=== PATIENT | female | born 1980 | race Caucasian/White ===

== ENCOUNTER 2024-11-10 11:27 | Emergency (ER) | payer BC, SELFPAY ==
[2024-11-10 11:36] VITALS: BP 117/76; PULSE 77; RESP 16; TEMP 36.8; O2SAT 99; BMI 29.2
--- NOTE | 2024-11-10 11:39 | EKG_ITS ---
[facility] Test Date: 2024-11-10 Pat Name: CLARI MCQUEEN Department: Room: - Gender: Female Offal Baler: : 1980 Requested By: ED Temporary Provider Order Number: [id number] Reading MD: ED Temporary Provider Measurements Intervals [place] Rate: 72 P: 39 MD: 139 QRS: 12 QRSD: 90 T: 26 QT: 377 QTc: 414 Interpretive Statements SINUS RHYTHM Compared to ECG 01/30/2024 22:39:21 No significant changes /store/S0/[id number].pdf
--- NOTE | 2024-11-10 11:48 | XR_ITS ---
Examination: PA lateral chest 2 views TECHNIQUE: Upright PA lateral chest 2 views Examination time: November 10, 2024 1310 hours INDICATIONS: Chest pain today. FINDINGS: Normal heart size. Lungs are clear. The osseous structures are intact IMPRESSION: No active disease
--- NOTE | 2024-11-10 11:49 | PD.EDRME ---
Rapid Medical Screening Exam E Arrival date/time: 11/10/24 11:27 This is a 44-year-old female that comes to the emergency room with complaints of near syncope episode. Patient states that she started to have a pain to the right lateral chest and she reports shortly after that she started feeling dizzy and felt like her vision got blurry. Patient states that her daughter helped her to the floor she kind of slid down. Patient denies any injuries. Patient states she did not actually pass out and was awake the entire time. Patient denies chest pain shortness of breath. Patient reports episode of back pain that happened couple days ago after she urinated. Patient states that the only time she has had that pain. Patient denies alcohol drug use. I have greeted and performed a focused initial assessment of this patient. Initial appropriate labs ordered at this time. A comprehensive ED assessment and evaluation of the patient and analysis of all test and completion of medical decision making process will be conducted by additional ED provider. Chief Complaint: Chest Pain Time Seen by Provider: 11/10/24 11:32 Vital signs: Vital Signs Temperature 98.2 F 11/10/24 11:36 Pulse Rate 77 11/10/24 11:36 Respiratory Rate 16 11/10/24 11:36 Blood Pressure 117/76 11/10/24 11:36 Pulse Oximetry (%) 99 11/10/24 11:36 Oxygen Delivery Method Room Air 11/10/24 11:36
[2024-11-10 12:15] LABS: Collection Type, Urine Voided
[2024-11-10 12:33] LABS: Basophils # (Auto) 0.1 Thou/mm3 (0.0-0.2); Basophils % (Auto) 1 % (0-2.5); Eosinophils # (Auto) 0.2 Thou/mm3 (0.0-0.5); Eosinophils % (Auto) 2 % (0-10); Hematocrit 36.3 % (36.0-46.0); Hemoglobin 12.7 g/dL (12.0-16.0); Immature Granulocytes % (Auto) 0 % (0-0); Immature Granulocytes Auto 0.02 Thou/mm3 (0.00-0.00); Lymphocytes # (Auto) 2.1 Thou/mm3 (1.0-4.8); Lymphocytes % (Auto) 22 % (10-50); Mean Corpuscular Hemoglobin 30.8 pg (25.0-35.0); Mean Corpuscular Volume 88 fL (80-100); Monocytes # (Auto) 0.6 Thou/mm3 (0.0-0.8); Monocytes % (Auto) 6 % (0-12); Neutrophils # (Auto) 6.6 Thou/mm3 (1.8-7.7); Neutrophils % (Auto) 69 % (37-80); Nucleated Red Blood Cell % 0 /100 WBC (0); Platelet Count 259 Thou/mm3 (140-440); RDW Standard Deviation 40.5 fL (36.4-46.3); Red Blood Count 4.13 Miln/mm3 (4.00-5.20); White Blood Count 9.5 Thou/mm3 (3.6-11.0)
[2024-11-10 12:44] LABS: Bilirubin,Urine Negative (Negative); Blood,Urine 1+ (Negative); Clarity,Urine Clear (Clear/Hazy); Color,Urine Colorless (Lt Yel-Yel); Culture Indicated,Urine Not Indicated; Glucose, Urine Negative (Negative); Ketones,Urine Negative (Negative); Leukocyte Esterase,Urine Negative (Negative); Nitrite,Urine Negative (Negative); Protein,Urine Negative (Neg - Trace); RBC,Urine 1 /hpf (0-3); Specific Gravity,Urine 1.006 (1.001-1.035); Squamous Epithelial Cell,Urine 3 /hpf (0-5); Urobilinogen,Urine Negative mg/dL (0.0-1.0); WBC,Urine 1 /hpf (0-5)
[2024-11-10 12:54] LABS: Amphetamine/Methamp Scrn,U Negative (Negative); Barbiturate Screen,Urine Negative (Negative); Benzodiazepines Screen,Urine Negative (Negative); Benzoylecgonine Screen, Ur Negative (Negative); Fentanyl Screen,Urine Negative (Negative); Opiate Screen,Urine Negative (Negative); THC Screen,Urine Negative (Negative)
[2024-11-10 12:59] LABS: Alanine Aminotransferase 16 U/L (10-49); Albumin, Serum 4.7 gm/dL (3.5-5.0); Alkaline Phosphatase 50 U/L (46-116); Anion Gap 8 (7-16); Aspartate Amino Transferase 17 U/L (0-34); BUN/Creatinine Ratio 14 Ratio (12-20); Blood Urea Nitrogen 10 mg/dL (9-23); Calcium 9.4 mg/dL (8.3-10.6); Calcium (Corrected) 9.4 mg/dL (8.5-10.1); Carbon Dioxide 25.3 mMol/L (20.0-31.0); Chloride 108 mMol/L (98-107); Creatinine (Component) 0.7 mg/dL (0.6-1.3); Estimated Creatinine Clearance 90.1 mL/min (>60); Globulin 2.3 gm/dL (2.3-3.5); Glucose 92 mg/dL (74-106); Osmolality,Calculated 280 (275-295); Potassium 3.9 mMol/L (3.4-5.1); Sodium 141 mMol/L (136-145); Troponin I < 0.002 ng/mL (0.0-0.045); eGFR > 60 See Note
[2024-11-10 13:22] LABS: HCG Qualitative,Urine Negative
--- NOTE | 2024-11-10 13:36 | EDNOTE_ITS ---
<Statement entered by Gloria Childress MD - 11/10/24 14:43> As co-signing physician, I was present and available for consult prn. I concur with the plan and care as documented by the midlevel provider. ED General RME/HPI General Chief complaint: Chest Pain Stated complaint: SHARP,SHOOTING PAIN R)SIDE/CHEST,SOB,[id number] AGO Time Seen by Provider: 11/10/24 11:32 Arrival date/time: 11/10/24 11:27 CC: Near syncope episode happened at home, she had blurry vision felt lightheaded was helped to the floor. Patient also had a second episode in the waiting room. Currently patient is awake alert oriented with no symptoms whatsoever states she feels mildly weak. Denies headache shortness of breath difficulty breathing nausea vomiting or diarrhea RME / HPI RME / HPI narrative: 11/10/24 11:27 This is a 44-year-old female that comes to the emergency room with complaints of near syncope episode. Patient states that she started to have a pain to the right lateral chest and she reports shortly after that she started feeling dizzy and felt like her vision got blurry. Patient states that her daughter helped her to the floor she kind of slid down. Patient denies any injuries. Patient states she did not actually pass out and was awake the entire time. Patient denies chest pain shortness of breath. Patient reports episode of back pain that happened couple days ago after she urinated. Patient states that the only time she has had that pain. Patient denies alcohol drug use. I have greeted and performed a focused initial assessment of this patient. Initial appropriate labs ordered at this time. A comprehensive ED assessment and evaluation of the patient and analysis of all test and completion of medical decision making process will be conducted by additional ED provider. Related Data Previous Rx's ?Medication ?Instructions ?Recorded docusate sodium 100 mg capsule 100 mg PO BID #60 caps 03/08/18 (Colace) hydromorphone 2 mg tablet 2 mg PO Q6H PRN pain #30 tab s 03/08/18 (Dilaudid) Allergies Allergy/AdvReac Type Severity Reaction Status Date / Time acetaminophen (From Vicodin) Allergy Mild Nausea Verified 11/10/24 11:31 hydrocodone (From Vicodin) Allergy Mild Nausea Verified 11/10/24 11:31 Past Medical History Past Medical History NEUROLOGIC: Positive Neurological Disorders and Migraine; Negative Seizures CARDIAC: Negative Cardiac Disorders or Congestive Heart Failure RESPIRATORY: Positive Asthma (SEASONAL HAS INHALER); Negative Chronic Obstructive Pulmonary Disease (COPD) GASTROINTESTINAL: Positive Gastrointestinal Disorders and Gall Bladder Disease (FOR THIS PROC) GENITOURINARY: Negative Genitourinary Disorders or Renal Disease REPRODUCTIVE: Positive Previous Pregnancies (X3) MUSCULOSKELETAL: Positive Musculoskeletal Disorders, Arthritis and Rheumatoid Arthritis ENDOCRINE: Negative Endocrine Disorders, Diabetes Mellitus Type 1 or Diabetes Mellitus Type 2 HEMATOLOGIC: Negative Blood Disorders OTHER HISTORY: Positive Anesthesia Reactions (nausea) and Chicken Pox; Negative Autoimmune Disease or Blood Transfusions Family History FAMILY HISTORY: Positive Family Respiratory Disorders (FATHER), Family Cardiac Disorders (MOTHER (HTN)) and Family Surgery (SISTER) Surgical History SURGICAL: Positive Tubal Ligation Social History SMOKING STATUS: Never smoker ED Exam Narrative Physical exam: [General: Not in any acute distress Head normocephalic HEENT: Within acceptable limits Neck is supple nontender Chest equal chest rise nontender to palpation Respiratory: Clear to auscultation no wheezes crackles or rubs CV: Rate rhythm is regular no murmurs rubs or clicks Abdomen is soft nontender no masses positive bowel sounds all 4 quadrants Back: No CVA tenderness no spinous process tenderness from cervical spine thoracic and lumbar spine Skin: Intact no petechiae rash induration ulceration or crepitus Extremities: Moving all extremity against resistance cap refill less than 2 seconds neurosensory intact Neuro: Awake alert oriented x3 Glascow coma 15 no focal deficits] Course Course Course Narrative: After observing the patient for approximately 35 minutes there is no return of symptoms, this time comfortable discharging the patient home patient is also comfortable with this and would be willing to follow-up with her primary care provider. Quality Measures none Orders Category Date Time Status EKG (ED ONLY) *Do not use* NOW Care 11/10/24 11:39 Completed EKG (ED Only) Stat Exams 11/10/24 11:39 Draft XR chest 2V Stat Exams 11/10/24 11:48 Completed CBC Stat Lab 11/10/24 12:20 Completed Comprehensive Metabolic Panel Stat Lab 11/10/24 12:20 Completed Drug Screen,Urine Stat Lab 11/10/24 11:59 Completed HCG Qualitative,Urine Stat Lab 11/10/24 11:59 Completed Troponin I Stat Lab 11/10/24 12:20 Completed Urinalysis, C/S if Indicated Stat Lab 11/10/24 11:59 Completed Vital Signs Vital signs: Vital Signs Temperature 98.2 F 11/10/24 11:36 Pulse Rate 77 11/10/24 11:36 Respiratory Rate 16 11/10/24 11:36 Blood Pressure 117/76 11/10/24 11:36 Pulse Oximetry (%) 99 11/10/24 11:36 Oxygen Delivery Method Room Air 11/10/24 11:36 Discharge Plan Plan Patient Disposition: HOME (Self Care) Patient condition on transfer: Stable Prescriptions/Referrals Prescriptions/Med Rec: No Action hydromorphone [Dilaudid] 2 mg tablet 2 mg PO Q6H MDD 4 PRN (Reason: pain) Qty: 30 0RF docusate sodium [Colace] 100 mg capsule 100 mg PO BID Qty: 60 0RF Referrals: Genesis Cintron MD [Primary Care Provider] - In 1 week Problem List Clinical Impression: Near syncope Patient/Caregiver Discharge Instructions Other Activity Instructions:: Rest drink plenty of fluids follow-up with your primary care doctor if there is worsening symptoms return the emergency room medially for further evaluation. Education Materials: ED Near-Fainting- Vagal Reaction Print Language: [place] Stand Alone Forms: [employer] Award Info., Work/School Release, Patient Portal Info Letter PA/SURENDRA Supervising Physician PA/[employer] TECHNICIAN Supervising Physician: Luis Taylor ENP MDM Patient Acuity Low Acuity (complete MDM as needed) Clinical Information Provided by: patient Medical Records reviewed [facility] Chronic Illness/Social Conditions which may negatively complicate care or outcome(s)-explain: None or not applicable EKG EKG Interpretation(s): EKG performed 1142 shows a ventricular rate of 72 NM interval 139 QRS of 90 QTc of 401 is normal sinus rhythm Labs Lab(s) Interpretation(s): CBC shows no acute leukocytosis anemia thrombocytopenia CMP shows no acute electrolyte imbalances renal impairment transaminitis. T. bili of 2. Troponin is negative Urine is negative UDS is negative Chest x-ray as interpreted by me read by radiology as negative Imaging Imaging interpretation: Interpreted by me
[2024-11-10 13:40] VITALS: BP 115/66; PULSE 64; RESP 16; TEMP 36.7; O2SAT 99
[2024-11-10 13:41] VITALS: PULSE 61
== END 2024-11-10 14:44 | disposition home or self-care (01) ==
PROVIDERS: Nurse Practitioner Family; Emergency Provider Emergency Medicine; PCP Family Medicine
DX: R55 Syncope and collapse (principal)
CPT/HCPCS: 36415; 71046; 80053; 80307; 81001; 81025; 84484; 85025; 93005; 99283

== ENCOUNTER → 2025-06-23 | Outpatient (CLI) | payer BC, SELFPAY ==
--- NOTE | 2025-06-23 08:51 | XR_ITS ---
EXAMINATION: PA lateral chest 2 views TECHNIQUE: Upright PA lateral chest 2 views Date and time: June 23, 2025, 0922 hours INDICATIONS: Right-sided pain 22 years in the mid chest FINDINGS: Normal heart size Lungs are clear Clavicles ribs thoracic vertebral bodies intact IMPRESSION: No active disease
--- NOTE | 2025-06-23 09:15 | XR_ITS ---
Examination: Abdomen sonogram, Limited Date and time of exam: June 23, 2025, 0909 hours INDICATIONS: Right upper abdominal pain years, cholecystectomy history Technique: Real-time hernandes scale transabdominal sonographic images of the upper abdomen obtained. Findings: Absent gallbladder Normal common bile duct 0.4 cm Pancreatic head 1.7 cm Liver 13.9 cm fatty infiltration no focal liver lesions Normal hepatopetal portal venous flow Patent IVC IMPRESSION: Absent gallbladder Normal common bile duct
== END | disposition home or self-care (01) ==
PROVIDERS: PCP Family Medicine; Referring Provider Family Medicine; Visit Provider Family Medicine
DX: R10.11 Right upper quadrant pain (principal); R07.89 Other chest pain; Z90.49 Acquired absence of other specified parts of digestive tract
CPT/HCPCS: 71046; 76705